=== PATIENT | female | born 1995 ===

== ENCOUNTER 2024-03-02 20:35 | Emergency (ER) | payer BC, SELFPAY ==
--- NOTE | ~2024-03-02 | CT_ITS ---
CT Facial Bones Clinical Indication: Right orbital trauma Technique: Contiguous axial scans were obtained through the facial bones followed by coronal and sagi ttal reconstructions. Dose reduction technique was used on this scan by utilizing automated exposure control and iterative reconstruction technique. The dose-length product (DLP) was 226.68 mGy-cm. Findings: Questional angulated nondisplaced fracture the vomer with possible blood products in the ri ght nasal cavity. Correlate with physical exam. No other fracture in the facial bones identified. Int raorbital soft tissues appear normal. Impression: Questionable angulated, nondisplaced fracture of the vomer, with possible blood products in the right nasal cavity. Correlate with physical exam. No other fracture seen. Reviewed, dictated and finalized at location . Impression: Questionable angulated, nondisplaced fracture of the vomer, with possible blood products in the right nasal cavity. Correlate with physical exam. No other fracture seen.
[2024-03-02 20:55] VITALS: BP 119/60; PULSE 68; RESP 14; TEMP 36.8; O2SAT 100
[2024-03-02 23:50] VITALS: BP 132/91; PULSE 74; RESP 16; O2SAT 99
[2024-03-03 00:40] VITALS: BP 130/67; PULSE 79; RESP 16; O2SAT 98
--- NOTE | 2024-03-03 00:40 | ED.EYEPROB ---
HPI - Eye Problem General Chief complaint: Eye Problems Stated complaint: eye complaint Time Seen by Provider: 03/02/24 23:48 Source: patient Mode of arrival: ambulatory Limitations: no limitations History of Present Illness HPI Narrative: This is a 29-year-old female who presents to the ED for chief complaint of right eye injury that occurred around 1300 today. Patient reports that she was playing with her 5-year-old when her child accidentally elbowed her in the eye. States that ever since then she has had right-sided headache, right eye pain, watering of the right eye as well as congestion and rhinorrhea. Endorses some blurred vision due to the eye watering. Denies diplopia, photophobia. Does state that the eye feels irritated. Denies vision loss, syncope, numbness, weakness, any further sites of pain or injury. Related Data Allergies Allergy/AdvReac Type Severity Reaction Status Date / Time No Known Allergies Allergy Verified 03/03/24 00:38 Review of Systems Review of Systems: All systems as dictated in HPI Exam Narrative: GENERAL: Well-appearing, well-nourished, and in no acute distress. HEAD: Normocephalic, atraumatic. EYES: PERRLA and EOMI. Right eye tearful. Wood's lamp exam of the right eye shows corneal abrasion to the 2 o'clock position. negative Barbra sign symptomatic relief with tetracaine drops ENT: Nares clear, no rhinorrhea or epistaxis. Mucous membranes moist. Oropharynx without tonsillar hypertrophy exudate or other lesions. NECK: Supple. No adenopathy or masses. CHEST: No respiratory distress. Clear to auscultation. No wheezes rales or rhonchi HEART: Regular rate and rhythm. No murmur heard. Normal peripheral pulses. ABDOMEN: Soft, nontender, nondistended, normal active bowel sounds. MSK: Normal range of motion. No edema. SKIN: Warm, dry, no rash. NEURO: Alert and oriented x4. No focal deficits. PSYCH: Normal mood and affect. Course Vital Signs Vital signs: Vital Signs Temperature 98.2 F 03/02/24 20:55 Pulse Rate 68 03/02/24 20:55 Respiratory Rate 14 03/02/24 20:55 Blood Pressure 119/60 03/02/24 20:55 Pulse Oximetry 100 03/02/24 20:55 Oxygen Delivery Room Air 03/02/24 20:55 Temperature 98.2 F 03/02/24 20:55 Pulse Rate 65 03/03/24 01:49 Respiratory Rate 16 03/03/24 01:49 Blood Pressure 118/69 03/03/24 01:49 Pulse Oximetry 97 03/03/24 01:49 Oxygen Delivery Room Air 03/02/24 20:55 MDM - Eye Problem MDM Narrative Medical decision making narrative: This is a 29-year-old female who presents to the ED for chief complaint of right eye injury. Vitals are normal. Exam shows a corneal abrasion to the right eye with fluorescein stain. No proptosis or evidence of retrobulbar hemorrhage. CT shows no facial bone fracture. Symptomatically improved with tetracaine. Ofloxacin drops given. Pt will be discharged in stable condition. Return precautions given and supportive measures discussed. Pt is understanding and agreeable with plan for discharge and follow-up with PCP. Discharge Plan Discharge Clinical Impression: Corneal abrasion Patient Disposition: Home, Self-Care Condition: Stable Instructions: Antibiotic Form Additional Instructions: your exam and imaging today are reassuring overall. There is no fracture of the facial bones. There is however a corneal abrasion present. Please use antibiotic drops to prevent infection. Follow-up with PCP. This issue should resolve over the next week or so. If you have any new or worsening symptoms please return to the ER for further evaluation. Prescriptions: New ofloxacin 0.3 % drops See Rx Instructions .ROUTE .COMPLEX Qty: 5 0RF Rx Instructions: put 1-2 drps into affected eye(s) every 2-4 h x 2 days, then 1-2 drps 4 times/day days 3-7 Follow-up/Referrals: UNKNOWN,DOCTOR [Primary Care Provider] - Time of Disposition: 02:27
[2024-03-03] MEDS: OFLOXACIN 0.3% OPHTH SOLN 5 ML BTL 1 DROP AFFCTD EYE (01:09)
[2024-03-03] MEDS: IBUPROFEN 400 MG TABLET 800 MG PO (01:09)
[2024-03-03 01:49] VITALS: BP 118/69; PULSE 65; RESP 16; O2SAT 97
== END 2024-03-03 02:33 | disposition home or self-care (01) ==
PROVIDERS: Emergency Provider Physician Assistant
DX: S05.01XA Injury of conjunctiva and corneal abrasion without foreign body, right eye, initial encounter (principal); W51.XXXA Accidental striking against or bumped into by another person, initial encounter
CPT/HCPCS: 70486; 99284; A9270